=== PATIENT | female | born 2000 | race Caucasian/White ===

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

== ENCOUNTER → 2021-02-11 | Outpatient (CLI) | payer BC, OTHER ==
--- NOTE | 2021-02-11 13:53 | Diagnostic Imaging Report ---
INDICATION: Pain COMPARISON: Unavailable TECHNIQUE: 3 radiographs of the right ankle dated 02/11/2021 FINDINGS: No acute fracture or dislocation. No destructive osseous process. The talar dome is unremarkable. Ankle mortise is symmetric. Soft tissue swelling is noted about the ankle, particularly laterally. No suspicious radiopaque foreign body. IMPRESSION: No acute osseous abnormality with soft tissue swelling about the ankle, particularly laterally. Dictated by: Dictated on workstation # [id number]
== END ==
LOC: RAD 09:58
PROVIDERS: ATTEND Family Medicine
DX: M25.471 Effusion, right ankle (principal); M25.571 Pain in right ankle and joints of right foot
CPT/HCPCS: 73610

== ENCOUNTER → 2021-03-11 | Outpatient (CLI) | payer BC ==
[2021-03-11 11:16] LABS: BASOPHILS # (AUTO) 0.1 10^3/uL (0.0-0.1); BASOPHILS % (AUTO) 1 % (0-10); EOSINOPHILS # (AUTO) 0.3 10^3/uL (0.0-0.3); EOSINOPHILS % (AUTO) 4 % (0-10); HEMATOCRIT 39 % (35-52); HEMOGLOBIN 13.6 g/dL (11.5-16.0); LYMPHOCYTES # (AUTO) 2.5 10^3/uL (1.0-4.0); LYMPHOCYTES % (AUTO) 31 % (12-44); MEAN CORPUSCULAR HEMOGLOBIN 30 pg (25-34); MEAN CORPUSCULAR HGB CONC 35 g/dL (32-36); MEAN CORPUSCULAR VOLUME 86 fL (80-99); MEAN PLATELET VOLUME 10.1 fL (9.0-12.2); MONOCYTES # (AUTO) 0.7 10^3/uL (0.0-1.0); MONOCYTES % (AUTO) 9 % (0-12); NEUTROPHILS # (AUTO) 4.6 10^3/uL (1.8-7.8); NEUTROPHILS % (AUTO) 56 % (42-75); PLATELET COUNT 241 10^3/uL (130-400); WHITE BLOOD COUNT 8.2 10^3/uL (4.3-11.0)
== END ==
LOC: LAB 10:31
PROVIDERS: ATTEND Family Medicine
DX: Z34.01 Encounter for supervision of normal first pregnancy, first trimester (principal); Z3A.00 Weeks of gestation of pregnancy not specified
CPT/HCPCS: 36415; 85025; 86703; 86762; 86780; 86850; 86900; 86901; 87340

== ENCOUNTER → 2021-04-05 | Outpatient (CLI) | payer BC, MEDICAID ==
--- NOTE | 2021-04-05 16:19 | Diagnostic Imaging Report ---
PROCEDURE: US OB SINGLE FETUS <14 WKS. TECHNIQUE: Multiple real-time grayscale images were obtained over the gravid uterus in various projections. INDICATION: OB ultrasound for dates. FINDINGS: There is a single live intrauterine fetus with a crown-rump length of 2.4 cm consistent with 9 week 1 day gestation. The heart rate is 172 bpm. Maternal adnexa appear normal without evidence of mass or free fluid. IMPRESSION: The 9 week 1 day intrauterine by current biometric measurements. Sonographic EDC of 11/07/2021 correlates well with LMP. No abnormality is noted. Dictated by: Dictated on workstation # [id number]
== END ==
LOC: RAD 15:15
PROVIDERS: ATTEND Family Medicine
DX: Z34.91 Encounter for supervision of normal pregnancy, unspecified, first trimester (principal); Z3A.09 9 weeks gestation of pregnancy
CPT/HCPCS: 76801

== ENCOUNTER → 2021-06-20 | Outpatient (CLI) | payer BC, MEDICAID ==
--- NOTE | 2021-06-20 17:47 | Diagnostic Imaging Report ---
INDICATION: Routine anatomic survey. TECHNIQUE: Multiple real-time grayscale images were obtained over the gravid uterus. COMPARISON: None FINDINGS: Single live intrauterine is identified. heart rate is documented at 144 bpm. position is cephalic. Placenta is anterior, not low-lying. Formal anatomic survey was performed. Performing stem roller notes bilateral hydronephrosis. Evaluation of static images provided show prominence of the bilateral renal pelvises, but without significant caliectasis. Renal pelvis on the right measures 5 mm and renal pelvis on the left measures 4 mm. face anatomy is suboptimally evaluated due to position. Otherwise, anatomic survey is grossly unremarkable. IMPRESSION: 1. Bilateral pelviectasis. Continued follow-up is recommended. 2. Suboptimal visualization of facial anatomy. 3. Otherwise, unremarkable sonogram. Biometrical measurements are as follows: Biparietal 4.72 cm, age 20 weeks 2 days. Head circumference 18.01 cm, age 20 weeks 4 days. Abdominal circumference 5.27 cm, age 20 weeks 4 days. Femur length 3.37 cm, age 20 weeks 4 days. Sonographic estimate age: 20 weeks 4 days. Sonographic estimated date of delivery: 11/03/2021. Estimated Weight: 354 gm (+/- NA gm). LMP percentile: NA%. heart rate: 144 beats per minute. number: 1 of 1. Dictated by: Dictated on workstation # [id number]
== END ==
LOC: RAD 14:57
PROVIDERS: ATTEND Family Medicine
DX: O35.8XX0 Maternal care for other (suspected) fetal abnormality and damage, not applicable or unspecified (principal); Z3A.00 Weeks of gestation of pregnancy not specified
CPT/HCPCS: 76805

== ENCOUNTER 2021-07-08 11:15 | Outpatient (CLI) | payer BC, MEDICAID ==
[~2021-07-08] VITALS: Ht 170.2 cm; Wt 88.5 kg
[2021-07-08 11:09] VITALS: BP 120/72
[2021-07-08] MEDS ORDERED: ONDANSETRON 4 MG/2 ML (SDV) Z0FRAN IV PRN (11:30)
[2021-07-08] MEDS ORDERED: EPINEPHrine INJECTION 1 MG/ML AMP IM PRN (11:30)
[2021-07-08] MEDS ORDERED: ACETAMINOPHEN 500 MG TAB (TYLENOL) PO PRN (11:30)
[2021-07-08] MEDS ORDERED: diphenhydrAMINE 50 MG/ML INJ (BENADRYL) IV PRN (11:30)
[2021-07-08] MEDS ORDERED: CASIRIVIMAB/IMDEVIMAB 1,200 MG in NS (IVPB) 250 ML IV ONE (11:30)
[2021-07-08 12:26] VITALS: BP 101/44
== END 2021-07-08 13:15 | disposition home or self-care (01) ==
LOC: INFUSION 11:15
PROVIDERS: ATTEND Family Medicine
DX: Z23 Encounter for immunization (principal); U07.1 COVID-19

== ENCOUNTER → 2021-07-28 | Outpatient (CLI) | payer BC, MEDICAID ==
--- NOTE | 2021-07-28 17:25 | Diagnostic Imaging Report ---
INDICATION: Renal collecting dilatation and further visualization of facial structures. TECHNIQUE: Multiple real-time grayscale images were obtained over the gravid uterus. COMPARISON: 06/20/2021. FINDINGS: Brower viable IUP in cephalic position. The anterior placenta is unremarkable. No abruption or previa. The amniotic fluid volume is within normal limits. facial structures are unremarkable. The cervix is nondilated, 3.6 cm in length. There is no ascites. There is fluid in the urinary bladder which appeared unremarkable. Renal pelves measured about 4 mm bilaterally, within the upper limits of normal for age. No calyceal dilatation or lauryn hydronephrosis. IMPRESSION: 1. Normal amniotic fluid volume. Normal bladder. Renal pelves at the upper limits of normal without lauryn hydronephrosis or ascites. 2. Completion of prior limited anatomical survey with unremarkable appearance of the facial structures. Dictated by: Dictated on workstation # [id number]
== END ==
LOC: LAB 08:54
PROVIDERS: ATTEND Family Medicine
DX: Z34.92 Encounter for supervision of normal pregnancy, unspecified, second trimester (principal); Z3A.00 Weeks of gestation of pregnancy not specified
CPT/HCPCS: 76816; 82947

== ENCOUNTER → 2021-07-28 | Outpatient (CLI) | payer BC, MEDICAID ==
[2021-07-28 09:23] LABS: BASOPHILS % (AUTO) 0 % (0-10); EOSINOPHILS # (AUTO) 0.4 10^3/uL (0.0-0.3); EOSINOPHILS % (AUTO) 3 % (0-10); HEMATOCRIT 36 % (35-52); HEMOGLOBIN 12.2 g/dL (11.5-16.0); LYMPHOCYTES # (AUTO) 2.2 10^3/uL (1.0-4.0); LYMPHOCYTES % (AUTO) 17 % (12-44); MEAN CORPUSCULAR HEMOGLOBIN 30 pg (25-34); MEAN CORPUSCULAR HGB CONC 34 g/dL (32-36); MEAN CORPUSCULAR VOLUME 89 fL (80-99); MEAN PLATELET VOLUME 9.9 fL (9.0-12.2); MONOCYTES % (AUTO) 8 % (0-12); NEUTROPHILS % (AUTO) 71 % (42-75); PLATELET COUNT 202 10^3/uL (130-400); WHITE BLOOD COUNT 12.7 10^3/uL (4.3-11.0)
== END | disposition still patient (30) ==
LOC: LAB 08:50
PROVIDERS: ATTEND Family Medicine
DX: Z34.92 Encounter for supervision of normal pregnancy, unspecified, second trimester (principal); Z3A.00 Weeks of gestation of pregnancy not specified
CPT/HCPCS: 36415; 82951; 85025

== ENCOUNTER 2021-10-29 01:44 | Outpatient (CLI) | payer BC, MEDICAID ==
[~2021-10-29] VITALS: Ht 170.2 cm; Wt 96.4 kg
[2021-10-29 01:44] VITALS: BP 127/73
[2021-10-29 02:02] VITALS: BP 127/73
[2021-10-29] MEDS ORDERED: PREN-8 PO (02:09)
[2021-10-29 02:12] LABS: BILIRUBIN,URINE NEGATIVE (NEGATIVE); CLARITY,URINE CLEAR; COLOR,URINE YELLOW; GLUCOSE, URINE (UA) NEGATIVE (NEGATIVE); KETONES,URINE NEGATIVE (NEGATIVE); LEUKOCYTE ESTERASE ,URINE TRACE (NEGATIVE); NITRITE,URINE NEGATIVE (NEGATIVE); PH,URINE 7.5 (5-9); PROTEIN,URINE NEGATIVE (NEGATIVE)
[2021-10-29 02:17] VITALS: BP 127/73
[2021-10-29 02:25] LABS: BACTERIA,URINE TRACE /HPF; WBC,URINE RARE /HPF
--- NOTE | 2021-10-31 08:33 | Physician Query-Final Dx ---
Clinic Account Progress/Dx Physician Query: Please give diagnosis Please include # weeks gestation Date of Service Oct 29, 2021 at 01:44 PORTIA,NovOct 31, 2021 08:33
== END 2021-10-29 03:08 | disposition home or self-care (01) ==
LOC: WSo 01:44 → LDRP 01:45 → WSo 03:08
PROVIDERS: ATTEND Family Medicine
DX: O42.92 Full-term premature rupture of membranes, unspecified as to length of time between rupture and onset of labor (principal); Z3A.38 38 weeks gestation of pregnancy
CPT/HCPCS: 81000; 99213

== ENCOUNTER 2021-11-03 15:09 | Inpatient (IN) | payer BC, MEDICAID ==
[~2021-11-03] VITALS: Ht 170.2 cm; Wt 97.3 kg
[~2021-11-03 15:09] MED LIST changes: +PREN-8 PO
[2021-11-03 17:27] VITALS: BP 125/75
[2021-11-03] MEDS ORDERED: FLU QUADRIvalent (3YOA+) 60 mcg/0.5 ml 2021-22(AFLURIA) IM ONE (18:00)
[2021-11-03] MEDS ORDERED: D5 LR IV SOLUTION 1,000 ML IV ONE (22:58)
[2021-11-03] MEDS ORDERED: D5 LR IV SOLUTION 1,000 ML IV SCH (23:00)
[2021-11-03 23:01] VITALS: BP 127/77
[2021-11-03 23:59] LABS: BASOPHILS % (AUTO) 0 % (0-10); EOSINOPHILS # (AUTO) 0.2 10^3/uL (0.0-0.3); EOSINOPHILS % (AUTO) 1 % (0-10); HEMATOCRIT 36 % (35-52); HEMOGLOBIN 11.7 g/dL (11.5-16.0); LYMPHOCYTES # (AUTO) 2.7 10^3/uL (1.0-4.0); LYMPHOCYTES % (AUTO) 18 % (12-44); MEAN CORPUSCULAR HEMOGLOBIN 27 pg (25-34); MEAN CORPUSCULAR HGB CONC 33 g/dL (32-36); MEAN CORPUSCULAR VOLUME 82 fL (80-99); MEAN PLATELET VOLUME 10.6 fL (9.0-12.2); MONOCYTES # (AUTO) 1.5 10^3/uL (0.0-1.0); MONOCYTES % (AUTO) 10 % (0-12); NEUTROPHILS # (AUTO) 10.7 10^3/uL (1.8-7.8); NEUTROPHILS % (AUTO) 71 % (42-75); WHITE BLOOD COUNT 15.2 10^3/uL (4.3-11.0)
[2021-11-04] VITALS (39 sets, daily range): BP systolic 108–139; BP diastolic 57–80
[2021-11-04] MEDS ORDERED: BUTORPHANOL INJ 2 MG/ML (STADOL) VIAL ONE (00:07)
[2021-11-04] MEDS ORDERED: BUTORPHANOL INJ 2 MG/ML (STADOL) VIAL IV PRN (00:15)
[2021-11-04 01:42] LABS: BAND NEUTROPHILS 2 %; LYMPHOCYTES % (MANUAL) 15 %; MONOCYTES % (MANUAL) 5 %; NEUTROPHILS % (MANUAL) 78 %
[2021-11-04 01:43] LABS: MICROCYTOSIS SLIGHT; PLATELET COUNT 242 10^3/uL (130-400)
[2021-11-04] MEDS: CATHETER FLUSH 10 ML SYR IV SCH (06:00)
[2021-11-04] MEDS ORDERED: fentaNYL 2 mcg/ml BUPIVA 0.125 100 ML ONE (07:43)
[2021-11-04] MEDS ORDERED: fentaNYL INJ 100 MCG/2 ML AMP ONE (08:12)
--- NOTE | 2021-11-04 09:42 | History & Physical-OB ---
OB - Chief Complaint & HPI Date/Time Date of Admission: Date of Admission: Nov 03, 2021 at 20:30 Date seen by a Provider: Nov 03, 2021 Time Seen by a Provider: 18:00 Chief Complaint/History OB-Reason for Admission/Chief: Rupture of Membranes Hx : 1 Hx Para: 0 Expected Date of Delivery: Nov 07, 2021 Gestational Age in Weeks: 39 Gestational Age in Days: 4 Admission Nurse Assessment Rev: Yes History of Labs GBS negative Allergies and Home Medications Allergies Coded Allergies: No Known Drug Allergies (Unverified , 06/30/13) Patient Home Medication List Home Medication List Reviewed: Yes Vit W-Ca,Fe,FA(<1 mg) ( Formula) 1 Each Tablet, 1 EACH PO DAILY, (Reported) Entered as Reported by: ABRIL KO on 10/29/21 0209 Last Action: Reviewed Discontinued Medications Cetirizine Hcl (Cetirizine Hcl) 10 Mg Tablet, 10 MG PO DAILY, (Reported) Discontinued Reason: No Longer Taking Entered as Reported by: RENATA VALVERDE on 07/28/14 1007 Hydrocodone Bit/Acetaminophen (Lortab 5 Mg Tablet) 1 Tab Tab, 1-2 TAB PO EVERY 4-6HRS PRN for PAIN Discontinued Reason: No Longer Taking Prescribed by: RADHA FU on 07/29/14 1211 OB - History Hx of Present Care: Yes Ultrasounds: Normal mid trimester US Obstetrical Complications: None Medical Complications: None Obstetrical History Hx : 1 Hx Para: 0 Hx Total # of Abortions (Spona: 0 Delivery History Hx Blood Disorders: No Patient Past Medical History no chronic medical problems Social History/Family History Alcohol Use: Denies Use Recreational Drug Use: No 2nd Hand Smoke Exposure: No Immunizations Influenza Vaccine Up-to-Date: No; Not Current OB - Admission Exam Physical Exam Vitals: Vital Signs 11/03/21 11/04/21 17:27 03:16 Temp 36.6 Pulse 84 Resp 18 B/P (MAP) 127/76 (93) Pulse Ox 98 O2 Delivery Room Air HEENT: Moist Membranes Heart: Rhythm Normal Lungs: Clear Abdomen: Gravid Cervical Dilatation: Fingertip (on admission) Effacement: 50% Station: Ballotable Membranes: Ruptured Amniotic Fluid: Clear Heart Rate: 140's Accelerations: Accelerations Present Short Term Variability: Present Contractions on Admission: >10 Minutes Apart Labs Laboratory Tests Test 11/03/21 15:35 11/03/21 16:45 11/03/21 23:45 Range/Units Membranes Rupture POSITIVE Amniotic Fluid Ferning Test NEGATIVE NEGATIVE White Blood Count 15.2 H 4.3-11.0 10^3/uL Red Blood Count 4.33 3.80-5.11 10^6/uL Hemoglobin 11.7 11.5-16.0 g/dL Hematocrit 36 35-52 % Mean Corpuscular Volume 82 80-99 fL Mean Corpuscular Hemoglobin 27 25-34 pg Mean Corpuscular Hemoglobin Concent 33 32-36 g/dL Red Cell Distribution Width 13.3 10.0-14.5 % Platelet Count 242 130-400 10^3/uL Mean Platelet Volume 10.6 9.0-12.2 fL Immature Granulocyte % (Auto) 1 % Neutrophils (%) (Auto) 71 42-75 % Lymphocytes (%) (Auto) 18 12-44 % Monocytes (%) (Auto) 10 0-12 % Eosinophils (%) (Auto) 1 0-10 % Basophils (%) (Auto) 0 0-10 % Neutrophils # (Auto) 10.7 H 1.8-7.8 10^3/uL Lymphocytes # (Auto) 2.7 1.0-4.0 10^3/uL Monocytes # (Auto) 1.5 H 0.0-1.0 10^3/uL Eosinophils # (Auto) 0.2 0.0-0.3 10^3/uL Basophils # (Auto) 0.0 0.0-0.1 10^3/uL Immature Granulocyte # (Auto) 0.1 0.0-0.1 10^3/uL Neutrophils % (Manual) 78 % Lymphocytes % (Manual) 15 % Monocytes % (Manual) 5 % Band Neutrophils 2 % Microcytosis SLIGHT OB - Assessment/Plan/Diagnosis Assessment Assessment: rupture of membranes (at term 39wk 4 days) Admission Dx 1. IUP at term 39wk 4 days with SROM Admission Status: Inpatient Order (span 2 midnights) Reason for Inpatient Admission: L&D Plan Plan: Expectant Management Other Plan -epidural desired -pitocin as needed ALEXANDRA DONALDSON MD Nov 04, 2021 09:42
[2021-11-04] MEDS ORDERED: CITRIC ACID/SOB CIT (BICITRA) 30 ML UDC ONE (10:02)
[2021-11-04] MEDS ORDERED: AZITHROMYCIN INJECTION 500 MG/5 ML VIAL ONE (10:02)
[2021-11-04] MEDS ORDERED: FAMOTIDINE 20MG/2ML IV (PEPCID) ONE (10:02)
[2021-11-04] MEDS ORDERED: METOCLOPRAMIDE INJ 10 MG/2 ML (REGLAN) ONE (10:02)
[2021-11-04] MEDS ORDERED: WATER (STERILE) FOR INJECTION 20 ML ONE (10:03)
[2021-11-04] MEDS ORDERED: ceFAZolin 2 GM IV Premixed 50 ML ONE (10:03)
--- NOTE | 2021-11-04 10:48 | Progress Note ---
Subjective Date Seen by a Provider: Nov 04, 2021 Time Seen by a Provider: 10:10 Subjective/Events-last exam Patient now with epidural and pain under control. Objective Exam Vital Signs Date Time Temp Pulse Resp B/P (MAP) Pulse Ox O2 Delivery O2 Flow Rate FiO2 11/04/21 03:16 36.6 84 18 127/76 (93) Room Air 11/03/21 23:01 36.2 71 18 127/77 (94) Room Air 11/03/21 17:27 36.2 82 18 98 Room Air Capillary Refill : Less Than 3 Seconds General Appearance: No Apparent Distress Other comments Cervix at 2cm, 80% effaced. monitor doesn't reveal any acceleration between contractions on a consistent basis. During contraction decels noted but return to baseline Results Lab Laboratory Tests 11/03/21 15:35: Membranes Rupture POSITIVE 11/03/21 16:45: Amniotic Fluid Ferning Test NEGATIVE 11/03/21 23:45: White Blood Count 15.2H, Red Blood Count 4.33, Hemoglobin 11.7, Hematocrit 36, Mean Corpuscular Volume 82, Mean Corpuscular Hemoglobin 27, Mean Corpuscular Hemoglobin Concent 33, Red Cell Distribution Width 13.3, Platelet Count 242, Mean Platelet Volume 10.6, Immature Granulocyte % (Auto) 1, Neutrophils (%) (Auto) 71, Lymphocytes (%) (Auto) 18, Monocytes (%) (Auto) 10, Eosinophils (%) (Auto) 1, Basophils (%) (Auto) 0, Neutrophils # (Auto) 10.7H, Lymphocytes # (Auto) 2.7, Monocytes # (Auto) 1.5H, Eosinophils # (Auto) 0.2, Basophils # (Auto) 0.0, Immature Granulocyte # (Auto) 0.1, Neutrophils % (Manual) 78, Lymphocytes % (Manual) 15, Monocytes % (Manual) 5, Band Neutrophils 2, Microcytosis SLIGHT Assessment/Plan Assessment/Plan Assess & Plan/Chief Complaint 1. IUP at 39w4d gestation--in labor -epidural in place 2. monitoring reveals lack of accelerations and decels with contractions -due to the monitoring unable to start pitocin. -patient aware of monitoring and agrees to proceed with primary LTCS. Dr Patel and surgery crew notified. ALEXANDRA DONALDSON MD Nov 04, 2021 10:48
[2021-11-04] MEDS ORDERED: LIDOCAINE PF 2% 5 ML (XYLOCAINE) VIAL ONE (10:50)
[2021-11-04] MEDS ORDERED: BUPIVACAINE 0.25% 30 ML (SENSORCAINE) VIAL ONE (10:50)
[2021-11-04] MEDS ORDERED: OXYTOCIN PRE-MIX DRIP 1,000 ML IV ONE (11:21)
--- NOTE | 2021-11-04 11:40 | Cesarean Section Operative ---
Procedure Procedure Note Pre-operative Diagnosis: Brandee Krause is a 21 /Para 1 / 0,Gestational Age 39 4/7 weeks, intolerance to labor Post-operative Diagnosis: same, body cord, OP presentation Procedure: Primary low transverse section Physician: BAUIDLIO JACK Estimated blood loss: 600 mL Disposition: stable Findings: Viable female , Apgars 8/9, weight 7#7ounces, intact placenta, 3vc, normal appearing uterus, tubes, and ovaries. Indications:Brandee Krause is a 21 /Para 1 / 0,Gestational Age 39 4/7 weeks, intolerance to labor presenting for orimary cs. Procedure Details: The patient was seen in pre-op and the procedure was discussed with the patient in full, including the risks, benefits, and alternatives. All questions were answered. The patient was taken to the operating room and a time out was performed, verifying patient and procedure. Epidural anesthesia had recently been placed for labor, so it was checked and redosed by anesthesia. The the patient was placed in the dorsal supine with leftward tilt for uterine displacement.~ Her abdomen was then prepped and draped in the typical sterile fashion. A Pfannenstiel skin incision was made using a scalpel and carried down through the underlying fascia. The fascia was incised in the midline and tented up using Joel clamps. On both the inferior and superior fascia side the rectus muscle was dissected off bluntly and sharply using Golden scissors. The peritoneum was identified and entered bluntly in the midline. This was then stretched laterally using manual strength. After entering the abdominal cavity and confirming lack of intraperitoneal adhesions, a large Kenneth retractor was placed and the lower uterine segment was visualized. A scalpel was utilized to make a low transverse uterine incision. Amniotomy was performed with an Allis clamp with return of clear fluid. The 's head was grasped and brought to the level of the incision. Fundal pressure was applied and was delivered without difficulty. Mouth and nares were suctioned with bulb suction. After the umbilical cord was clamped and cut, the was handed off to the pediatric staff. A sample of cord blood was then obtained. The placenta was delivered intact via uterine massage. The uterus was cleared of all clots and debris. The uterine incision was closed using 0 Vicryl in a running locked fashion. A second imbricated layer was placed using 0 Vicryl in a running fashion as well. The bilateral tubes and ovaries appeared normal. The abdominal gutters were cleared of all clots and debris. A final check of the uterine incision showed it to be hemostatic. The peritoneum was closed using 3-0 Vicryl in a running fashion. The fascia was closed with 0 PDS in a running fashion. The subcutaneous space was hemostatic, and irrigated. The subcutaneous space was closed with 3-0 Vicryl in several single interrupted stitches. The skin was then closed using 4-0 Monocryl in a running subcuticular fashion. The skin edges were reapproximated together and were hemostatic. A pressure dressing was applied. All sponge, lap and needle counts were correct at the end of the procedure per nursing. Vitals - Labs Vital Signs - I&O Vital Signs Date Time Temp Pulse Resp B/P (MAP) Pulse Ox O2 Delivery O2 Flow Rate FiO2 11/04/21 03:16 36.6 84 18 127/76 (93) Room Air 11/03/21 23:01 36.2 71 18 127/77 (94) Room Air 11/03/21 17:27 36.2 82 18 98 Room Air Labs Laboratory Tests 11/03/21 15:35: Membranes Rupture POSITIVE 11/03/21 16:45: Amniotic Fluid Ferning Test NEGATIVE 11/03/21 23:45: White Blood Count 15.2H, Red Blood Count 4.33, Hemoglobin 11.7, Hematocrit 36, Mean Corpuscular Volume 82, Mean Corpuscular Hemoglobin 27, Mean Corpuscular Hemoglobin Concent 33, Red Cell Distribution Width 13.3, Platelet Count 242, Mean Platelet Volume 10.6, Immature Granulocyte % (Auto) 1, Neutrophils (%) (Auto) 71, Lymphocytes (%) (Auto) 18, Monocytes (%) (Auto) 10, Eosinophils (%) (Auto) 1, Basophils (%) (Auto) 0, Neutrophils # (Auto) 10.7H, Lymphocytes # (Auto) 2.7, Monocytes # (Auto) 1.5H, Eosinophils # (Auto) 0.2, Basophils # (Auto) 0.0, Immature Granulocyte # (Auto) 0.1, Neutrophils % (Manual) 78, Lymphocytes % (Manual) 15, Monocytes % (Manual) 5, Band Neutrophils 2, Microcytosis SLIGHT BAUDILIO JACK DO Nov 04, 2021 11:40
[2021-11-04] MEDS ORDERED: ONDANSETRON 4 MG/2 ML (SDV) Z0FRAN IVP PRN (11:45)
[2021-11-04] MEDS ORDERED: MEASLES,MUMPS,RUBELLA 1 EA INJ SC SCH (11:45)
[2021-11-04] MEDS ORDERED: LACTATED RINGERS 1,000 ML IV ONE (11:45)
[2021-11-04] MEDS ORDERED: TETANUS,DIPTH,PERTUSS P/F (BOOSTRIX) 0.5 ML VIAL IM SCH (11:45)
[2021-11-04] MEDS ORDERED: fentaNYL 2 mcg/ml BUPIVA 0.125 100 ML IV SCH (11:45)
[2021-11-04] MEDS ORDERED: NALOXONE 0.4 MG/ML 1 ML (NARCAN) VIAL IV PRN ×2 (11:45)
[2021-11-04] MEDS ORDERED: CATHETER FLUSH 10 ML SYR IV PRN (11:45)
[2021-11-04] MEDS ORDERED: OXYTOCIN PRE-MIX DRIP 500 ML IV SCH (11:45)
[2021-11-04] MEDS: KETOROLAC 30 MG/ML VIAL IV SCH ×2 (12:03→19:07)
[2021-11-04] MEDS ORDERED: OXC5T PO (12:21)
[2021-11-04] MEDS ORDERED: DOCU100C37 PO (12:21)
[2021-11-04] MEDS ORDERED: ACET-93 PO (12:21)
[2021-11-04] MEDS ORDERED: IBUP-844 PO (12:21)
[2021-11-04] MEDS: morphine INJ 4 MG/ML 1 ML (VIAL/SYRINGE) IV PRN ×2 (13:24→15:56)
[2021-11-04] MEDS ORDERED: METOCLOPRAMIDE INJ 10 MG/2 ML (REGLAN) IV ONE (13:30)
[2021-11-04] MEDS ORDERED: CITRIC ACID/SOB CIT (BICITRA) 30 ML UDC PO ONE (13:30)
[2021-11-04] MEDS ORDERED: LACTATED RINGERS 1,000 ML IV PRN (13:30)
[2021-11-04] MEDS ORDERED: FAMOTIDINE 20MG/2ML IV (PEPCID) IV ONE (13:30)
[2021-11-04] MEDS ORDERED: CATHETER FLUSH 10 ML SYR IV SCH (14:00)
[2021-11-04] MEDS: ACETAMINOPHEN 500 MG TAB (TYLENOL) PO SCH (15:56)
[2021-11-04] MEDS: DOCUSATE SODIUM 100 MG (COLACE) CAP PO SCH (22:10)
[2021-11-05 00:05] VITALS: BP 132/74
[2021-11-05] MEDS: ACETAMINOPHEN 500 MG TAB (TYLENOL) PO SCH ×3 (00:19→17:31)
[2021-11-05] MEDS: KETOROLAC 30 MG/ML VIAL IV SCH ×2 (00:19→06:45)
--- NOTE | 2021-11-05 01:20 | Discharge Inst-Women's Service ---
Discharge Inst-Women's Serv Depart Medication/Instructions New, Converted or Re-Newed RX: RX on Chart Final Diagnosis failure to progress intolerance to labor Problems Reviewed?: Yes Consults/Follow Up Additional Follow Up: Yes (1 week for incision check [phone]; [address] De La Paz) Activity Activity: Activity as Tolerated Driving Instructions: No Driving for 1 Week NO SMOKING: NO SMOKING Nothing Inside Vagina: No Douching, No [place], No Tampons Diet Discharge Diet: No Restrictions Symptoms to Report to : Swelling Increased, Bleeding Excessive, Pain Increased, Fever Over 101 Degrees F, Vaginal Bleeding Increase, Cramps in Feet or Legs, Vaginal Discharge Foul For Any Problems or Questions: Contact Your Physician Skin/Wound Care Infection Signs and Symptoms: Increased Redness, Foul Odor of Wound, Increased Drainage, Skin Itchy or Has a Rash, Increased Swelling, Temperature Above 101 F Operative Area Clean and Dry: Keep Incision Clean/Dry Stitches/Jimmy/Dermabond: Dermabond Bathing Instructions: BAUDILIO Rela DO Nov 05, 2021 01:20
[2021-11-05 04:13] VITALS: BP 120/72
[2021-11-05 05:58] LABS: BASOPHILS # (AUTO) 0.1 10^3/uL (0.0-0.1); BASOPHILS % (AUTO) 0 % (0-10); EOSINOPHILS # (AUTO) 0.1 10^3/uL (0.0-0.3); EOSINOPHILS % (AUTO) 1 % (0-10); HEMATOCRIT 26 % (35-52); HEMOGLOBIN 8.6 g/dL (11.5-16.0); LYMPHOCYTES # (AUTO) 2.4 10^3/uL (1.0-4.0); LYMPHOCYTES % (AUTO) 11 % (12-44); MEAN CORPUSCULAR HEMOGLOBIN 27 pg (25-34); MEAN CORPUSCULAR HGB CONC 33 g/dL (32-36); MEAN CORPUSCULAR VOLUME 82 fL (80-99); MEAN PLATELET VOLUME 10.7 fL (9.0-12.2); MONOCYTES # (AUTO) 2.1 10^3/uL (0.0-1.0); MONOCYTES % (AUTO) 9 % (0-12); NEUTROPHILS # (AUTO) 17.2 10^3/uL (1.8-7.8); NEUTROPHILS % (AUTO) 78 % (42-75); PLATELET COUNT 208 10^3/uL (130-400)
[2021-11-05] MEDS: CATHETER FLUSH 10 ML SYR IV SCH (06:45)
[2021-11-05] MEDS: DOCUSATE SODIUM 100 MG (COLACE) CAP PO SCH ×2 (08:14→22:20)
[2021-11-05 08:17] VITALS: BP 116/60
--- NOTE | 2021-11-05 10:16 | Anesthesia-Regional Post-Op ---
Regional Patient Condition Mental Status: Alert, Oriented x3 Circulation: Same as Pre-Op Headache: Absent Sensation: Full Recovery Motor Block: Absent Post Op Complications Complications None Follow Up Care/Instructions Patient Instructions None needed. Anesthesia/Patient Condition Patient is doing well, no complaints, stable vital signs, no apparent adverse anesthesia problems. No complications reported per nursing. LYUDMILA SOARES CRNA Nov 05, 2021 10:16
[2021-11-05] MEDS: IBUPROFEN 600 MG (MOTRIN) TAB PO SCH ×2 (11:49→17:31)
--- NOTE | 2021-11-05 12:33 | Postpartum Progress Note ---
Note Note Day # 1 Subjective: Patient is without complaints. Ambulating, voiding. Tolerating a regular diet without nausea or vomiting. Normal lochia. Pain is well controlled with oral pain medications. Objective: Physical Exam: General - Alert and oriented, no apparent distress Abdomen - Soft, appropriately tender to palpation, non-distended, fundus firm at umbilicus Extremities - no edema, negative Luis's bilaterally Assessment: POD 1 PLTCS Plan: Routine care. Encourage breast feeding. Encourage ambulation. Ferrous sulfate supplementation. Plan for discharge tomorrow Vitals - Labs Vital Signs - I&O Vital Signs Date Time Temp Pulse Resp B/P (MAP) Pulse Ox O2 Delivery O2 Flow Rate FiO2 11/05/21 08:17 36.6 93 18 116/60 (78) 98 Room Air 11/05/21 04:13 36.7 94 20 120/72 (88) 100 Room Air 11/05/21 00:05 36.9 111 20 132/74 (93) 99 Room Air 11/04/21 19:36 37.1 120 22 115/72 (86) 98 Room Air 11/04/21 15:46 37.2 101 18 115/65 (82) Room Air 11/04/21 12:50 36.6 89 16 115/70 (85) 100 Room Air 11/04/21 12:35 36.6 20 121/80 (94) 97 Room Air 11/04/21 12:35 Room Air I & O 11/05/21 07:00 Intake Total 2650 ml Output Total 2700 ml Balance -50 ml Labs Laboratory Tests 11/05/21 05:25: White Blood Count 22.0H, Red Blood Count 3.19L, Hemoglobin 8.6#L, Hematocrit 26L , Mean Corpuscular Volume 82, Mean Corpuscular Hemoglobin 27, Mean Corpuscular Hemoglobin Concent 33, Red Cell Distribution Width 13.5, Platelet Count 208, Mean Platelet Volume 10.7, Immature Granulocyte % (Auto) 1, Neutrophils (%) (Auto) 78H, Lymphocytes (%) (Auto) 11L, Monocytes (%) (Auto) 9, Eosinophils (%) (Auto) 1, Basophils (%) (Auto) 0, Neutrophils # (Auto) 17.2H, Lymphocytes # (Auto) 2.4, Monocytes # (Auto) 2.1H, Eosinophils # (Auto) 0.1, Basophils # (Auto) 0.1, Immature Granulocyte # (Auto) 0.2H RADHA DE LA TORRE DO Nov 05, 2021 12:33
[2021-11-05 13:15] VITALS: BP 125/58
[2021-11-05 17:38] VITALS: BP 123/69
[2021-11-05 22:00] VITALS: BP 116/56
[2021-11-06] MEDS: IBUPROFEN 600 MG (MOTRIN) TAB PO SCH ×2 (00:14→06:13)
[2021-11-06 01:45] VITALS: BP 114/58
[2021-11-06 05:45] VITALS: BP 118/61
[2021-11-06] MEDS: ACETAMINOPHEN 500 MG TAB (TYLENOL) PO SCH (06:12)
[2021-11-06 06:28] LABS: BASOPHILS % (AUTO) 0 % (0-10); EOSINOPHILS # (AUTO) 0.2 10^3/uL (0.0-0.3); EOSINOPHILS % (AUTO) 1 % (0-10); HEMATOCRIT 26 % (35-52); HEMOGLOBIN 8.1 g/dL (11.5-16.0); LYMPHOCYTES # (AUTO) 2.6 10^3/uL (1.0-4.0); LYMPHOCYTES % (AUTO) 17 % (12-44); MEAN CORPUSCULAR HEMOGLOBIN 27 pg (25-34); MEAN CORPUSCULAR HGB CONC 32 g/dL (32-36); MEAN CORPUSCULAR VOLUME 85 fL (80-99); MEAN PLATELET VOLUME 10.9 fL (9.0-12.2); MONOCYTES # (AUTO) 1.3 10^3/uL (0.0-1.0); MONOCYTES % (AUTO) 8 % (0-12); NEUTROPHILS # (AUTO) 11.3 10^3/uL (1.8-7.8); NEUTROPHILS % (AUTO) 73 % (42-75); PLATELET COUNT 234 10^3/uL (130-400); WHITE BLOOD COUNT 15.5 10^3/uL (4.3-11.0)
[2021-11-06 07:45] VITALS: BP 115/66
[2021-11-06] MEDS ORDERED: OXC5T PO (09:33)
--- NOTE | 2021-11-06 09:34 | Postpartum Progress Note ---
Note Note Day # 2 Subjective: Patient is without complaints. Ambulating, voiding. Tolerating a regular diet without nausea or vomiting. Normal lochia. Pain is well controlled with oral pain medications. Objective: Physical Exam: General - Alert and oriented, no apparent distress Abdomen - Soft, appropriately tender to palpation, non-distended, fundus firm at umbilicus Extremities - no edema, negative Luis's bilaterally Incision- c/d/i Assessment: POD 2 PLTCS Acute blood loss anemia Leukocytosis improving Plan: Routine care. Encourage breast feeding. Encourage ambulation. Ferrous sulfate supplementation. Plan for discharge today Vitals - Labs Vital Signs - I&O Vital Signs Date Time Temp Pulse Resp B/P (MAP) Pulse Ox O2 Delivery O2 Flow Rate FiO2 11/06/21 05:45 36.8 84 18 118/61 (80) 99 Room Air 11/06/21 01:45 36.7 80 18 114/58 (76) 100 Room Air 11/05/21 22:00 36.7 87 18 116/56 (76) 99 Room Air 11/05/21 17:38 37.0 107 18 123/69 (87) 100 Room Air 11/05/21 13:15 36.6 88 18 125/58 (80) 98 Room Air Labs Laboratory Tests 11/06/21 05:25: White Blood Count 15.5H, Red Blood Count 3.03L, Hemoglobin 8.1L, Hematocrit 26L, Mean Corpuscular Volume 85, Mean Corpuscular Hemoglobin 27, Mean Corpuscular Hemoglobin Concent 32, Red Cell Distribution Width 13.8, Platelet Count 234, Mean Platelet Volume 10.9, Immature Granulocyte % (Auto) 1, Neutrophils (%) (Auto) 73, Lymphocytes (%) (Auto) 17, Monocytes (%) (Auto) 8, Eosinophils (%) (Auto) 1, Basophils (%) (Auto) 0, Neutrophils # (Auto) 11.3H, Lymphocytes # (Auto) 2.6, Monocytes # (Auto) 1.3H, Eosinophils # (Auto) 0.2, Basophils # (Auto) 0.0, Immature Granulocyte # (Auto) 0.1 RADHA DE LA TORRE DO Nov 06, 2021 09:34
[2021-11-06] MEDS: DOCUSATE SODIUM 100 MG (COLACE) CAP PO SCH (10:21)
[2021-11-06 11:19] VITALS: BP 118/61
== END 2021-11-06 14:00 | disposition home or self-care (01) | DRG 787 ==
LOC: WSo 15:09 → LDRP 15:10 → WSo 20:30 → LDRP 20:30 → WS 11-04 13:21
PROVIDERS: ADMIT Family Medicine; ATTEND Family Medicine
PROC: 10D00Z1 Extraction of Products of Conception, Low, Open Approach (ICD-10-PCS; principal; 2021-11-04 10:57)
DX: O76 Abnormality in fetal heart rate and rhythm complicating labor and delivery (principal); D62 Acute posthemorrhagic anemia; O90.81 Anemia of the puerperium; O64.0XX0 Obstructed labor due to incomplete rotation of fetal head, not applicable or unspecified; O69.82X0 Labor and delivery complicated by other cord entanglement, without compression, not applicable or unspecified; Z3A.39 39 weeks gestation of pregnancy; Z37.0 Single live birth
CPT/HCPCS: 36415; 84112; 85007; 85025; 85027; 86850; 86900; 86901; 89060; 99212

== ENCOUNTER → 2023-03-14 | Outpatient (CLI) | payer BC, MEDICAID ==
[~2023-03-14] MED LIST changes: +ACET-93 PO; +DOCU100C37 PO; +IBUP-844 PO; +OXC5T PO
--- NOTE | 2023-03-14 16:05 | Diagnostic Imaging Report ---
INDICATION: survey. TECHNIQUE: Multiple real-time grayscale images were obtained over the gravid uterus. COMPARISON: None. FINDINGS: There is a single live fetus in cephalic presentation. heart rate was recorded at 152 bpm. Placenta is anterior. No previa is detected. Amniotic fluid volume is normal at 16.6 cm. Cervical length is 4 cm. kidneys, bladder and stomach are unremarkable. brain is unremarkable. There is a four-chamber heart. There is a three-vessel cord with normal insertion. spine is unremarkable. Biometrical measurements are as follows: Biparietal 5.29 cm, age 22 weeks 1 days. Head circumference 19.30 cm, age 21 weeks 4 days. Abdominal circumference 16.59 cm, age 21 weeks 5 days. Femur length 3.65 cm, age 21 weeks 5 days. Sonographic estimate age: 21 weeks 6 days. Sonographic estimated date of delivery: 07/19/2023. Estimated Weight: 438 gm (+/- 64 gm). LMP percentile: 84%. heart rate: 152 beats per minute. number: 1 of 1. IMPRESSION: Single live IUP 21 weeks 6 days gestational age. Estimated date of confinement, sonographically, is 07/19/2023. Dictated by: Dictated on workstation # [id number]
== END ==
LOC: RAD 14:09
PROVIDERS: ATTEND Nurse Practitioner Women's Health
DX: Z36.1 Encounter for antenatal screening for raised alphafetoprotein level (principal); Z3A.21 21 weeks gestation of pregnancy
CPT/HCPCS: 76805

== ENCOUNTER 2023-07-16 05:28 | Outpatient (CLI) | payer BC, MEDICAID ==
[~2023-07-16] VITALS: Ht 170.2 cm; Wt 95.5 kg
[2023-07-16] MEDS ORDERED: SERT-412 PO (09:15)
== END 2023-07-16 09:40 | disposition home or self-care (01) ==
LOC: PREOP 05:28
PROVIDERS: ATTEND Obstetrics & Gynecology
DX: Z01.818 Encounter for other preprocedural examination (principal)

== ENCOUNTER 2023-07-23 11:11 | Inpatient (IN) | payer BC, MEDICAID ==
[2023-07-23] VITALS (12 sets, daily range): BP systolic 107–129; BP diastolic 59–74
[~2023-07-23 11:11] MED LIST changes: +SERT-412 PO
--- OUTSIDE RECORDS SUMMARY | 2023-07-23 11:22 | XMS REPORT ---
Author Author [facility] ter of [facility] ter [facility] Address Unknown Phone Unavailable Care Team Providers Care Ordnance Handler Name Role Phone NAM BERNSTEIN Unavailable PROBLEMS Type Condition ICD9-CM Code [id number] Code Onset Dates Condition Status W/U Status Risk SNOMED Code Notes Problem Missed period N92.6 confirmed [id number] ALLERGIES No Known Allergies ENCOUNTERS from 2000 to 2023-06-19 Encounter Location Date Provider Diagnosis [facility] [address] [facility] [id number] [address] Jun, NAM BERNSTEIN Viral upper respiratory tract infection J06.9 and COVID-19 U07.1 SOCIAL HISTORY Sex Assigned At : Social History Observation Description Sex Assigned At Unknown PHQ2 Question Answer Notes In the last 2 weeks, how oft en have you had little interest or pleasure in doing things? Not at all In the last 2 weeks, how oft en have you been feeling down, depressed, or hopeless? Not at all Total PHQ2 Score 0 REASON FOR REFERRAL No Information VITAL SIGNS Height 68 in Jun, Height-cm 172.72 cm Jun, Weight 194.9 lbs Jun, Weight-kg 88.41 kg Jun, Temperature 98.2 degrees Fahrenheit Jun, Heart Rate 116 bpm Jun, Respiratory Rate 20 bpm Jun, Oximetry 98 % Jun, BMI 29.63 kg/m2 Jun, Blood pressure systolic 128 mmHg Jun, Blood pressure diastolic 78 mmHg Jun, MEDICATIONS No Known Medications REASON FOR VISIT Sinus congestion and nasal drainage /headache , ear pressure x the last 2 days -- kita negron, patient is 22 weeks MEDICAL (GENERAL) HISTORY Type Description Date Surgical History Left knee arthroscopic 2014 Surgical History right knee arthroscopic 2013 Hospitalization History surgeries MENTAL STATUS No Information ASSESSMENTS Encounter Date Diagnosis Assessment Notes Treatment Notes Treatment Clinical Notes Jun, Viral upper respiratory tract infection (ICD-10 - J06.9) Given list of OTC medications safe for . Jun, COVID-19 (ICD-10 - U07.1) Supportive measures including OTC fever reducing medications like Tylenol and ibuprofen. Push fluids to stay hydrated. If you were prescribed medication, take as directed. You may temporarily lose your sense of smell and taste. If symptoms persist once the illness has resolved, please call the clinic. If you are not currently on a blood thinner including aspirin, you may start taking a baby aspirin daily until symptoms resolve. Do not take if you have a history of bleeding ulcers. If you experience difficulty breathing then you need to call the clinic for further instructions/recomme ndations. For severe difficulty breathing call 911 or go straight to the local ER. Please follow the department of health's guidelines for quarantine. They will contact you with further instructions., Coronavirus (COVID-19): Care Instructions material was published Jun, Other Medications as directed, promote/support rest as able, push fluids to maintain hydration. Office visit if not improving. Your cold symptoms are cause by a virus, which means that antibiotics will not help with these symptoms. The following interventions may help you to feel better while their immune system is fighting the infection: For infants, use nasal saline drops and bulb suction of the nose as needed for cough or congestion. It is especially helpful to do this prior to feedings. For toddlers and older children, nasal saline sprays or rinses can be helpful. Cough and cold medications have not been found to be either safe or effective in children under 4 or even 6 years of age. However, a spoon-full of honey has been shown to be effective at reducing cough in children. Honey should not be given to children under 1 year of age. Other remedies that can be helpful include use of Vicks' Vapor-rub or generic equivalent, cool-mist humidifier (warm vaporizer can also be effective, but must take precautions to avoid angelo/scalding from steam / hot water), and elevating your child's head while sleeping (but avoid use of pillows or sleep positioners in infants due to risk for SIDS). For older children, OTC cough and cold preparations might be helpful, but make sure to inspect the ingredients list on the package, and do not give more than one OTC medication if using any "multi-symptom" medication, especially if the medication includes a pain-reliever or fever-mental health counselor. Call your medical provider or return to clinic if your child's symptoms do not start to improve after 7 to 10 days from onset of illness, for fever that starts after the third day of illness or persists for more than 2 days, or for worsening or new symptoms. If your child develops wheezing or is working hard to breathe, they should be taken to the closest hospital Emergency Department. PLAN OF TREATMENT Treatment Notes Assessment Notes Clinical Notes Viral upper respiratory trac t infection Given list of OTC medications safe for . COVID-19 Supportive measures including OTC fever reducing medications like Tylenol and ibuprofen. Push fluids to stay hydrated. If you were prescribed medication, take as directed. You may temporarily lose your sense of smell and taste. If symptoms persist once the illness has resolved, please call the clinic. If you are not currently on a blood thinner including aspirin, you may start taking a baby aspirin daily until symptoms resolve. Do not take if you have a history of bleeding ulcers. If you experience difficulty breathing then you need to call the clinic for further instructions/recommendations. For severe difficulty breathing call 911 or go straight to the local ER. Please follow the department of health's guidelines for quarantine. They will contact you with further instructions., Coronavirus (COVID-19): Care Instructions material was published Next Appt Details as needed or reg fu with pc p Reason: Insurance Providers Payer Name Payer Address Payer Phone Insured Name Patient Relationship to Insured Coverage Start Date Coverage End Date Subscriber Number Group Number RCM Missing insurance scan copy of card into pt doc Ko Krause Self - patient is the insured [facility] [address] [facility] [id number] [phone] Ko Krause Self - patient is the insured [address] [place] [address] [address] [facility] [phone] Ko Krause Self - patient is the insured [id number] [facility] [address] [facility] [phone] Dior Krause Natural Child - Insured does not have Financial Responsibility (includes legally adopted child) [id number]
--- OUTSIDE RECORDS SUMMARY | 2023-07-23 11:22 | XMS REPORT ---
Author Author [facility] ter of [facility] ter of [facility] Address Unknown Phone Unavailable Care Team Providers Care Greenhouse Grower Name Role Phone FIDENCIO MORENO Unavailable PROBLEMS Type Condition ICD9-CM Code [id number] Code Onset Dates Condition Status W/U Status Risk SNOMED Code Notes Problem Missed period N92.6 confirmed [id number] ALLERGIES No Known Allergies ENCOUNTERS from 2000 to 2023-01-28 Encounter Location Date Provider Diagnosis [facility] [address] [facility] [id number] [address] Feb, FIDENCIO MORENO Exposure to COVID-19 virus Z20.828 SOCIAL HISTORY Sex Assigned At : Social [...] Score 0 REASON FOR REFERRAL No Information REASON FOR VISIT No symptoms/exposed/[facility]/[place]/[facility]apid MEDICAL (GENERAL) HISTORY Type Description Date Surgical History Left knee arthroscopic 2014 Surgical History right knee arthroscopic 2013 Hospitalization History surgeries MENTAL STATUS No Information ASSESSMENTS Encounter Date Diagnosis Assessment Notes Treatment Notes Treatment Clinical Notes Feb, Exposure to COVID-19 virus (ICD-10 - Z20.828) Feb, Other Patient was instructed to self-isolate at home until further instruction from clinic staff PLAN OF TREATMENT No Information Insurance Providers Payer Name Payer Address Payer Phone Insured Name Patient Relationship to Insured Coverage Start Date Coverage End Date Subscriber Number Group Number RCM Missing insurance scan copy of card into pt doc Ko Krause Self - patient is the insured [address] [facility] [phone] Ko Krause Self - patient is the insured [id number] [facility] [address] [facility] [address] Dior Krause Natural Child - Insured does not have Financial Responsibility (includes legally adopted child) [id number] [facility] [address] [facility] [address] Ko Krause Self - patient is the insured 1
--- OUTSIDE RECORDS SUMMARY | 2023-07-23 11:22 | XMS REPORT ---
Author Author [facility] ter of [facility] ter of [facility] Address Unknown Phone Unavailable Care Team Providers Care Demi Chef Name Role Phone FIDENCIO MORENO Unavailable PROBLEMS Type Condition ICD9-CM Code [id number] Code Onset Dates Condition Status W/U Status Risk SNOMED Code Notes Problem Missed period N92.6 confirmed [id number] ALLERGIES No Known Allergies ENCOUNTERS from 2000 to 2022-12-21 Encounter Location Date Provider Diagnosis [facility] [address] [facility] [id number] [address] Jan, FIDENCIO TIFFANIE Exposure to COVID-19 virus Z20.828 SOCIAL HISTORY [...] FOR REFERRAL No Information REASON FOR VISIT asymptomatic/exposed/[place]/[facility]- Rapid test MEDICAL (GENERAL) HISTORY Type Description Date Surgical History Left knee arthroscopic 2014 Surgical History right knee arthroscopic 2013 Hospitalization History surgeries MENTAL STATUS No Information ASSESSMENTS Encounter Date Diagnosis Assessment Notes Treatment Notes Treatment Clinical Notes Jan, Exposure to COVID-19 virus (ICD-10 - Z20.828) Jan, Other Patient was instructed to self-isolate at home until further instruction from clinic staff PLAN OF TREATMENT No Information Insurance Providers Payer Name Payer Address Payer Phone Insured Name Patient Relationship to Insured Coverage Start Date Coverage End Date Subscriber Number Group Number [employer] [place] [address] [id number] [phone] Dior Krause Natural Child - Insured does not have Financial Responsibility (includes legally adopted child) [id number] RCM Missing insurance scan copy of card into pt doc Ko Krause Self - patient is the insured [facility] [address] [facility] [address] Ko Krause Self - patient is the insured [address] [address] Ko Krause Self - patient is the insured [id number]
[2023-07-23] MEDS ORDERED: ceFAZolin INJECTION 2,000 MG in NS (IVPB) 50 ML 50 ML IV ONE (11:45)
[2023-07-23 11:54] LABS: BASOPHILS # (AUTO) 0.1 10^3/uL (0.0-0.1); BASOPHILS % (AUTO) 1 % (0-10); EOSINOPHILS # (AUTO) 0.2 10^3/uL (0.0-0.3); EOSINOPHILS % (AUTO) 2 % (0-10); HEMATOCRIT 33 % (35-52); HEMOGLOBIN 10.4 g/dL (11.5-16.0); LYMPHOCYTES # (AUTO) 2.3 10^3/uL (1.0-4.0); LYMPHOCYTES % (AUTO) 21 % (12-44); MEAN CORPUSCULAR HEMOGLOBIN 24 pg (25-34); MEAN CORPUSCULAR HGB CONC 32 g/dL (32-36); MEAN CORPUSCULAR VOLUME 74 fL (80-99); MEAN PLATELET VOLUME 10.9 fL (9.0-12.2); MONOCYTES % (AUTO) 9 % (0-12); NEUTROPHILS # (AUTO) 7.2 10^3/uL (1.8-7.8); NEUTROPHILS % (AUTO) 67 % (42-75); PLATELET COUNT 210 10^3/uL (130-400); WHITE BLOOD COUNT 10.8 10^3/uL (4.3-11.0)
[2023-07-23] MEDS ORDERED: METOCLOPRAMIDE INJ 10 MG/2 ML IV ONE (12:00)
[2023-07-23] MEDS ORDERED: CITRIC ACID/SODIUM CITRATE ORAL SOLN 30 ML PO ONE (12:00)
[2023-07-23] MEDS ORDERED: FAMOTIDINE INJ 20MG/2ML VIAL IV ONE (12:00)
[2023-07-23] MEDS ORDERED: LACTATED RINGERS 1,000 ML 1,000 ML IV PRN ×2 (12:00)
[2023-07-23] MEDS ORDERED: CATHETER FLUSH 10 ML SYR IV PRN (12:00)
--- NOTE | 2023-07-23 12:16 | History & Physical-OB ---
OB - Chief Complaint & HPI Date/Time Date of Admission: Date of Admission: Jul 23, 2023 at 11:11 Date seen by a Provider: Jul 23, 2023 Time Seen by a Provider: 12:05 Chief Complaint/History OB-Reason for Admission/Chief: Section Hx : 2 Hx Para: 1 Expected Date of Delivery: Jul 26, 2023 Gestational Age in Weeks: 39 Gestational Age in Days: 4 Admission Nurse Assessment Rev: Yes Allergies and Home Medications Allergies Coded Allergies: No Known Drug Allergies (Unverified , 07/16/23) Patient Home Medication List Home Medication List Reviewed: Yes Vit W-Ca,Fe,FA(<1 mg) ( Formula) 1 Each Tablet, 1 EACH PO DAILY, (Reported) Entered as Reported by: ABRIL KO on 10/29/21 0209 Sertraline HCl (Sertraline HCl) 25 Mg Tablet, 25 MG PO DAILY, (Reported) Entered as Reported by: Kyara Wilkins on 07/16/23 0915 Discontinued Medications Acetaminophen (Acetaminophen) 500 Mg Tablet, 1,000 MG PO Q8HR Discontinued Reason: No Longer Taking Prescribed by: BAUDILIO JACK on 11/04/21 1221 Docusate Sodium (Docusate Sodium) 100 Mg Capsule, 100 MG PO BID Discontinued Reason: No Longer Taking Prescribed by: BAUDILIO JACK on 11/04/21 1221 Ibuprofen (Ibu) 600 Mg Tablet, 600 MG PO Q6HR Discontinued Reason: No Longer Taking Prescribed by: BAUDILIO JACK on 11/04/21 1221 Oxycodone Hcl (Oxyir Tablet) 5 Mg Tab, 5 MG PO Q4HR PRN for PAIN-SEE DOSE INSTRUCTIONS Discontinued Reason: No Longer Taking Prescribed by: BAUDILIO JACK on 11/04/21 1221 Oxycodone Hcl (Oxyir Tablet) 5 Mg Tab, 5 MG PO Q4H PRN for PAIN-BREAKTHROUGH Discontinued Reason: No Longer Taking Prescribed by: RADHA DE LA TORRE on 11/06/21 0933 OB - History Hx of Present Care: Yes Ultrasounds: Normal mid trimester US Obstetrical Complications: None Medical Complications: None Delivery History Hx Blood Disorders: No Adverse Rxn to Tranfusion: No Patient Past Medical History no chronic medical problems Social History/Family History 2nd Hand Smoke Exposure: No Immunizations Influenza Vaccine Up-to-Date: No; Not Current Hepatitis A: No Hepatitis B: No OB - Admission Exam Physical Exam HEENT: NCAT Heart: Rhythm Normal Lungs: Clear Abdomen: Gravid Heart Rate: 130's Accelerations: Accelerations Present Decelerations: No Decelerations Short Term Variability: Present Penitentiary Variability: Average (6-25) Contractions on Admission: 6-10 Minutes Apart Labs Laboratory Tests Test 07/23/23 11:42 Range/Units White Blood Count 10.8 4.3-11.0 10^3/uL Red Blood Count 4.41 3.80-5.11 10^6/uL Hemoglobin 10.4 L 11.5-16.0 g/dL Hematocrit 33 L 35-52 % Mean Corpuscular Volume 74 L 80-99 fL Mean Corpuscular Hemoglobin 24 L 25-34 pg Mean Corpuscular Hemoglobin Concent 32 32-36 g/dL Red Cell Distribution Width 14.9 H 10.0-14.5 % Platelet Count 210 130-400 10^3/uL Mean Platelet Volume 10.9 9.0-12.2 fL Immature Granulocyte % (Auto) 1 % Neutrophils (%) (Auto) 67 42-75 % Lymphocytes (%) (Auto) 21 12-44 % Monocytes (%) (Auto) 9 0-12 % Eosinophils (%) (Auto) 2 0-10 % Basophils (%) (Auto) 1 0-10 % Neutrophils # (Auto) 7.2 1.8-7.8 10^3/uL Lymphocytes # (Auto) 2.3 1.0-4.0 10^3/uL Monocytes # (Auto) 1.0 0.0-1.0 10^3/uL Eosinophils # (Auto) 0.2 0.0-0.3 10^3/uL Basophils # (Auto) 0.1 0.0-0.1 10^3/uL Immature Granulocyte # (Auto) 0.1 0.0-0.1 10^3/uL OB - Assessment/Plan/Diagnosis Assessment Assessment: section Admission Dx 23 yo @ 39 Previous Admission Status: Inpatient Order (span 2 midnights) Reason for Inpatient Admission: RLTCS Plan Plan: Section RADHA DE LA TORRE DO Jul 23, 2023 12:16
[2023-07-23] MEDS ORDERED: CITRIC ACID/SODIUM CITRATE ORAL SOLN 30 ML ONE (12:44)
[2023-07-23] MEDS ORDERED: METOCLOPRAMIDE INJ 10 MG/2 ML ONE (12:44)
[2023-07-23] MEDS ORDERED: FAMOTIDINE INJ 20MG/2ML VIAL ONE (12:45)
[2023-07-23] MEDS ORDERED: ROPIVACAINE 5 MG/ML 30ML VIAL ONE (13:19)
[2023-07-23] MEDS ORDERED: OXYTOCIN DRIP PRE-MIX 1,000 ML IV ONE (13:19)
[2023-07-23] MEDS ORDERED: fentaNYL INJECTION 100 MCG/2 ML VIAL ONE (13:19)
--- NOTE | 2023-07-23 13:27 | Discharge Inst-Women's Service ---
Discharge Inst-Women's Serv Depart Medication/Instructions New, Converted or Re-Newed RX: Transmitted to Pharmacy Final Diagnosis POD 2 PLTCS Problems Reviewed?: Yes Consults/Follow Up Additional Follow Up: Yes Orders/Referrals Dr. Levy in 7-10 days and in 6 weeks Activity Activity: Activity as Tolerated Driving Instructions: No Driving for 1 Week NO SMOKING: NO SMOKING Nothing Inside Vagina: No Douching, No [place], No Tampons Diet Discharge Diet: No Restrictions Symptoms to Report to : Bleeding Excessive, Pain Increased, Fever Over 101 Degrees F, Vaginal Bleeding Increase, Questions/Concerns For Any Problems or Questions: Contact Your Physician Skin/Wound Care Infection Signs and Symptoms: Increased Redness, Foul Odor of Wound, Increased Drainage, Skin Itchy or Has a Rash, Increased Swelling, Temperature Above 101 F Operative Area Clean and Dry: Keep Incision Clean/Dry Stitches/[place]henon/Dermabond: Dermabond, Care of Stitches Bathing Instructions: RADHA Griffith DO Jul 23, 2023 13:27
[2023-07-23] MEDS ORDERED: ACHD5005 PO (13:28)
[2023-07-23] MEDS ORDERED: DOCU100C37 PO (13:28)
[2023-07-23] MEDS ORDERED: IBUP-844 PO (13:28)
[2023-07-23] MEDS ORDERED: NALOXONE 0.4 MG/ML 1 ML VIAL IV PRN (13:30)
[2023-07-23] MEDS ORDERED: ONDANSETRON INJECTION 4 MG/2 ML (SDV) IVP PRN (13:30)
[2023-07-23] MEDS ORDERED: Tetanus/Diphtheria/Pertussis (Acell) ADULT Vaccine 0.5 ML IM SCH (13:30)
[2023-07-23] MEDS ORDERED: MEASLES, MUMPS, RUBELLA VACCINE (MMR) SC SCH (13:30)
[2023-07-23] MEDS: KETOROLAC INJ 30 MG/ML VIAL IV SCH ×2 (15:01→20:39)
[2023-07-23] MEDS: OXYTOCIN DRIP PRE-MIX 500 ML IV SCH ×2 (15:25→17:40)
[2023-07-23] MEDS ORDERED: D5 LR 1,000 ML IV SOLN 1,000 ML IV ONE (17:32)
[2023-07-23] MEDS: CATHETER FLUSH 10 ML SYR IV SCH ×2 (17:40→20:40)
[2023-07-23] MEDS: DOCUSATE SODIUM 100 MG CAPSULE PO SCH (20:39)
[2023-07-24 00:20] VITALS: BP 123/76
[2023-07-24] MEDS: HYDROcodone/ACETAMINOPHEN 5 MG/325 MG TABLET PO PRN ×2 (00:23→18:54)
--- NOTE | 2023-07-24 00:40 | OPERATIVE REPORT ---
PREOPERATIVE DIAGNOSES: 1. A 23-year-old G2, P1 at 39 weeks and 4 days gestation. 2. Previous section. POSTOPERATIVE DIAGNOSES: 1. A 23-year-old G2, P1 at 39 weeks and 4 days gestation. 2. Previous section. PROCEDURE: Repeat low transverse section. SURGEON: Jensen De La Torre DO. FINANCIAL ENGINEER: Geno Tello who was necessary for manipulation and retraction throughout the procedure. ANESTHESIA: Spinal. ESTIMATED BLOOD LOSS: 400 mL. URINE OUTPUT: 150 mL clear at the end of the procedure. FLUIDS: 1100 mL lactated Ringer's solution. FINDINGS: A live female infant weighing 7 pounds 13 ounces, Apgars of 8 and 9. Grossly normal appearing bilateral fallopian tubes and ovaries. SPECIMEN SENT: None. INDICATIONS FOR PROCEDURE: This 23-year-old female patient who had sought care in my office, which was uncomplicated with exception of previous cesareans. We agreed to proceed with repeat . Risks of the procedure were discussed with the patient in detail and after all of her questions were answered, consent was obtained, the patient was taken to the operating room. OPERATIVE REPORT IN DETAIL: Once in the operating room, where spinal anesthesia was administered and found to be adequate, she was placed in supine position with a leftward tilt, prepped and draped in normal sterile fashion where a timeout was performed. Anesthesia was tested. I then made a Pfannenstiel skin incision through the previous existing scar using knife and carried down to the underlying fascia using Bovie cautery. The fascial incision was extended laterally using Bovie cautery. The superior edge of the fascial incision was then grasped with Joel clamps, tented upward, and dissected off the underlying rectus muscles. The inferior aspect of the fascial incision was then grasped with Joel clamps, tented up and dissected off the underlying rectus muscles. Rectus muscles were dissected down the midline using sharp dissection, which exposes the peritoneum, which I entered bluntly and extended using blunt traction. Kenneth ring retractor was placed in the peritoneal incision, which offers excellent lateral sidewall retraction. I identified the lower uterine segment, found to be thinned out. I made a low transverse incision to the vesicouterine peritoneum and bluntly dissected off the lower uterine segment, creating a bladder flap and then proceeded with my myotomy until membranes were visualized, at which point I extended the uterine incision laterally and superiorly using bandage scissors. Amniotomy was then performed. Clear fluid was noted. The was found in vertex presentation. With gentle fundal pressure, the infant's head was elevated up to the incision where delivered through the incision, the nares and oropharynx were bulb suctioned. Nuchal cord was reduced x1. Anterior and posterior shoulders were delivered. was brought to the operative field where cords were clamped and cut and infant was handed off to waiting nurses in attendance. Cord blood was collected. Three-vessel cord intact placenta was delivered spontaneously thereafter. IV Pitocin was initiated to facilitate uterine contraction. Uterine fundus confirmed by manual massage. The uterus was then exteriorized and cleared of all endometrial clots and debris. I then proceeded with closing the uterine incision using 0 Vicryl suture in a running locked fashion. Second layer of imbricating 0 Monocryl was placed. Excellent hemostasis was noted after doing this. I then placed the uterus back in the pelvis and copiously irrigated the pelvis using normal saline. Once again, there was no active bleeding from any of my dissection planes. I placed Interceed antiadhesive over my low transverse incision. I removed the Kenneth ring retractor and then proceeded with closing the peritoneum using 3-0 Vicryl suture in a running fashion. Rectus muscles were reapproximated using 3-0 Vicryl suture in interrupted fashion. The fascia was reapproximated using 0 Vicryl suture in a running fashion. The subcutaneous tissue was reapproximated with 3-0 plain interrupted subcutaneous stitch and the skin reapproximated using 4-0 Monocryl in running subcuticular. Dermabond was applied to incision, sterile dressing with adhesive white tape. The patient tolerated the procedure well and was taken to recovery area in stable condition. Lap and sponge counts were correct at the end of the procedure. Instrument counts correct as well. Two grams of Ancef were given preoperatively for infection prophylaxis. Job ID: [id number] DocumentID: [id number] Dictated Date: 07/23/2023 14:29:08 Early Childhood Services Coordinator Date: 07/24/2023 00:37:00 Dictated By: JENSEN DE LA TORRE DO
[2023-07-24] MEDS: KETOROLAC INJ 30 MG/ML VIAL IV SCH ×2 (02:22→08:21)
[2023-07-24 04:39] VITALS: BP 135/87
[2023-07-24 05:40] LABS: BASOPHILS % (AUTO) 0 % (0-10); EOSINOPHILS # (AUTO) 0.2 10^3/uL (0.0-0.3); EOSINOPHILS % (AUTO) 1 % (0-10); HEMATOCRIT 31 % (35-52); HEMOGLOBIN 9.6 g/dL (11.5-16.0); LYMPHOCYTES # (AUTO) 2.6 10^3/uL (1.0-4.0); LYMPHOCYTES % (AUTO) 20 % (12-44); MEAN CORPUSCULAR HEMOGLOBIN 24 pg (25-34); MEAN CORPUSCULAR HGB CONC 31 g/dL (32-36); MEAN CORPUSCULAR VOLUME 76 fL (80-99); MEAN PLATELET VOLUME 11.3 fL (9.0-12.2); MONOCYTES # (AUTO) 1.3 10^3/uL (0.0-1.0); MONOCYTES % (AUTO) 10 % (0-12); NEUTROPHILS # (AUTO) 8.8 10^3/uL (1.8-7.8); NEUTROPHILS % (AUTO) 68 % (42-75); PLATELET COUNT 209 10^3/uL (130-400); WHITE BLOOD COUNT 12.9 10^3/uL (4.3-11.0)
[2023-07-24] MEDS: DOCUSATE SODIUM 100 MG CAPSULE PO SCH ×2 (08:21→20:07)
[2023-07-24 08:25] VITALS: BP 138/75
--- NOTE | 2023-07-24 08:45 | Postpartum Progress Note ---
Note Note Day # 1 Subjective: Patient is without complaints. Ambulating, voiding. Tolerating a regular diet without nausea or vomiting. Normal lochia. Pain is well controlled with oral pain medications. Objective: Physical Exam: General - Alert and oriented, no apparent distress Abdomen - Soft, appropriately tender to palpation, non-distended, fundus firm at umbilicus Extremities - no edema, negative Luis's bilaterally Assessment: POD 1 RLTCS Acute blood loss anemia Plan: Routine care. Encourage breast feeding. Encourage ambulation. Ferrous sulfate supplementation. Plan for discharge tomorrow Vitals - Labs Vital Signs - I&O Vital Signs Date Time Temp Pulse Resp B/P (MAP) Pulse Ox O2 Delivery O2 Flow Rate FiO2 07/24/23 08:25 36.9 58 18 138/75 (96) 100 Room Air 07/24/23 04:39 37.0 71 16 135/87 (103) 100 Room Air 07/24/23 00:20 36.4 65 18 123/76 (92) 100 Room Air 07/23/23 20:00 36.6 70 18 128/70 (89) 100 Room Air 07/23/23 18:00 36.9 93 20 129/69 (89) 98 Room Air 07/23/23 16:00 36.7 60 20 107/59 (75) 100 Room Air 07/23/23 15:25 Room Air 07/23/23 15:25 36.6 18 124/74 (91) 99 Room Air 07/23/23 15:20 18 123/74 (90) 99 Room Air 07/23/23 15:15 Room Air 07/23/23 15:10 18 119/71 (87) 99 Room Air 07/23/23 15:00 18 117/67 (84) 97 Room Air 07/23/23 15:00 Room Air 07/23/23 14:50 18 118/61 (80) 97 Room Air 07/23/23 14:45 Room Air 07/23/23 14:40 20 115/64 (81) 98 Room Air 07/23/23 14:34 36.2 20 121/62 (81) 97 Room Air 07/23/23 14:34 Room Air 07/23/23 12:20 89 18 115/69 (84) Room Air 07/23/23 11:25 36.5 87 18 99 Room Air I & O 07/24/23 07:00 Intake Total 2800 ml Output Total 1100 ml Balance 1700 ml Labs Laboratory Tests 07/23/23 11:42: White Blood Count 10.8, Red Blood Count 4.41, Hemoglobin 10.4L, Hematocrit 33L, Mean Corpuscular Volume 74L, Mean Corpuscular Hemoglobin 24L, Mean Corpuscular Hemoglobin Concent 32, Red Cell Distribution Width 14.9H, Platelet Count 210, Mean Platelet Volume 10.9, Immature Granulocyte % (Auto) 1, Neutrophils (%) (Auto) 67, Lymphocytes (%) (Auto) 21, Monocytes (%) (Auto) 9, Eosinophils (%) (Auto) 2, Basophils (%) (Auto) 1, Neutrophils # (Auto) 7.2, Lymphocytes # (Auto) 2.3, Monocytes # (Auto) 1.0, Eosinophils # (Auto) 0.2, Basophils # (Auto) 0.1, Immature Granulocyte # (Auto) 0.1 07/24/23 05:10: White Blood Count 12.9H, Red Blood Count 4.08, Hemoglobin 9.6L, Hematocrit 31L, Mean Corpuscular Volume 76L, Mean Corpuscular Hemoglobin 24L, Mean Corpuscular Hemoglobin Concent 31L, Red Cell Distribution Width 15.0H, Platelet Count 209, Mean Platelet Volume 11.3, Immature Granulocyte % (Auto) 0, Neutrophils (%) (Auto) 68, Lymphocytes (%) (Auto) 20, Monocytes (%) (Auto) 10, Eosinophils (%) (Auto) 1, Basophils (%) (Auto) 0, Neutrophils # (Auto) 8.8H, Lymphocytes # (Auto) 2.6, Monocytes # (Auto) 1.3H, Eosinophils # (Auto) 0.2, Basophils # (Auto) 0.0, Immature Granulocyte # (Auto) 0.1 RADHA DE LA TORRE DO Jul 24, 2023 08:45
--- NOTE | 2023-07-24 11:00 | Anesthesia-Regional Post-Op ---
Regional Patient Condition Mental Status: Alert, Oriented x3 Circulation: Same as Pre-Op Headache: Absent Sensation: Full Recovery Motor Block: Absent Post Op Complications Complications None Follow Up Care/Instructions Patient Instructions None needed. Anesthesia/Patient Condition Patient is doing well, no complaints, stable vital signs, no apparent adverse anesthesia problems. No complications reported per nursing. JA LINO CRNA Jul 24, 2023 11:00
[2023-07-24 13:11] VITALS: BP 122/73
[2023-07-24] MEDS: IBUPROFEN 600 MG TABLET PO SCH ×2 (13:59→20:07)
[2023-07-24 17:02] VITALS: BP 117/65
[2023-07-24 20:20] VITALS: BP 125/73
[2023-07-25] MEDS: IBUPROFEN 600 MG TABLET PO SCH ×2 (01:57→08:29)
[2023-07-25 02:00] VITALS: BP 124/63
[2023-07-25] MEDS: HYDROcodone/ACETAMINOPHEN 5 MG/325 MG TABLET PO PRN (03:59)
[2023-07-25 08:00] VITALS: BP 104/64
--- NOTE | 2023-07-25 08:09 | Postpartum Progress Note ---
Note Note Day # 2 Subjective: Patient is without complaints. Ambulating, voiding. Tolerating a regular diet without nausea or vomiting. Normal lochia. Pain is well controlled with oral pain medications. Objective: Physical Exam: General - Alert and oriented, no apparent distress Abdomen - Soft, appropriately tender to palpation, non-distended, fundus firm at umbilicus Extremities - no edema, negative Luis's bilaterally Incision- c/d/i Assessment: POD 2 RLTCS Plan: Routine care. Encourage breast feeding. Encourage ambulation. Ferrous sulfate supplementation. Plan for discharge today Vitals - Labs Vital Signs - I&O Vital Signs Date Time Temp Pulse Resp B/P (MAP) Pulse Ox O2 Delivery O2 Flow Rate FiO2 07/25/23 02:00 36.9 60 18 124/63 (83) 100 Room Air 07/24/23 20:20 36.6 92 16 125/73 (90) 100 Room Air 07/24/23 17:02 36.4 69 18 117/65 (82) 98 Room Air 07/24/23 13:11 36.2 55 18 122/73 (89) 99 Room Air 07/24/23 08:25 36.9 58 18 138/75 (96) 100 Room Air I & O 07/25/23 07:00 Intake Total 1080 ml Balance 1080 ml RADHA DE LA TORRE DO Jul 25, 2023 08:09
[2023-07-25] MEDS: DOCUSATE SODIUM 100 MG CAPSULE PO SCH (08:29)
== END 2023-07-25 10:29 | disposition home or self-care (01) | DRG 787 ==
LOC: LDRP 11:11
PROVIDERS: ADMIT Obstetrics & Gynecology; ATTEND Obstetrics & Gynecology
PROC: 10D00Z1 Extraction of Products of Conception, Low, Open Approach (ICD-10-PCS; principal; 2023-07-23 13:54)
DX: O34.211 Maternal care for low transverse scar from previous cesarean delivery (principal); D62 Acute posthemorrhagic anemia; Z3A.39 39 weeks gestation of pregnancy; Z37.0 Single live birth; O90.81 Anemia of the puerperium
CPT/HCPCS: 36415; 85025; 86850; 86900; 86901; 94664